=== PATIENT | female | born 1980 | race African-American/Black ===

== ENCOUNTER 2024-06-09 00:32 | Emergency (ER) | payer OTHER ==
[~2024-06-09] VITALS: Ht 167.6 cm; Wt 81.8 kg
[~2024-06-09 00:32] MED LIST: DOCU-412 PO; HYDR-4062 PO; IBUP-1492 PO; PREN1TAB80 PO
[2024-06-09 00:43] VITALS: TEMP 98.2
[2024-06-09] MEDS: ACETAMINOPHEN 500 MG TABLET PO ONE (02:43)
[2024-06-09 03:10] VITALS: BP 119/60; PULSE 75; RESP 16; O2SAT 98
[2024-06-09] MEDS: BACITRACIN 28 GM OINTMENT TP ONE (03:17)
[2024-06-09] MEDS: PERTUSS(ACELL),DIPH,TET/PF 0.5 ML SYRINGE [ADULT] IM. ONE (03:18)
== END 2024-06-09 03:26 | disposition home or self-care (01) ==
LOC: EMS 00:39
DX: T22.20XA Burn of second degree of shoulder and upper limb, except wrist and hand, unspecified site, initial encounter (principal); T31.0 Burns involving less than 10% of body surface; Z98.890 Other specified postprocedural states
CPT/HCPCS: 16020; 90471; 90715; 99283